=== PATIENT | female | born 1985 | race Caucasian/White ===

== ENCOUNTER 2019-09-20 07:27 | Emergency (ER) | payer SELFPAY | END 2019-09-20 07:59 | disposition home or self-care (01) | LOC: MADERS 07:27 | DX: S60.445A External constriction of left ring finger, initial encounter (principal); W49.04XA Ring or other jewelry causing external constriction, initial encounter | CPT/HCPCS: 99283 ==

== ENCOUNTER 2020-01-02 07:30 | Emergency (ER) | payer SELFPAY ==
--- NOTE | 2020-01-02 08:37 | RAD ---
LEFT WRIST 3 VIEWS: HISTORY: Injury from a trip and fall with pain. FINDINGS: No evidence for acute fracture, dislocation, or other acute process. IMPRESSION: Unremarkable left wrist. If the patient has persistent or worsening pain, consider a short-term followup study in 1-2 weeks ve rsus additional imaging with MRI. POS: [facility]
== END 2020-01-02 08:36 | disposition home or self-care (01) ==
LOC: MADERS 07:30
DX: S63.502A Unspecified sprain of left wrist, initial encounter (principal); W01.0XXA Fall on same level from slipping, tripping and stumbling without subsequent striking against object, initial encounter
CPT/HCPCS: 29125

== ENCOUNTER 2023-10-04 12:56 | Emergency (ER) | payer SELFPAY ==
[2023-10-04] MEDS ORDERED: Ibuprofen 200 MG TAB ONE (13:49)
== END 2023-10-04 14:20 | disposition home or self-care (01) ==
LOC: MADERS 12:56
DX: S90.31XA Contusion of right foot, initial encounter (principal); W20.8XXA Other cause of strike by thrown, projected or falling object, initial encounter